=== PATIENT | male | born 1995 | race Caucasian/White ===

== ENCOUNTER 2021-02-18 14:49 | Emergency (ER) | payer BC, SELFPAY ==
[2021-02-18 15:05] VITALS: BP 133/81; PULSE 87; RESP 16; TEMP 37.1; O2SAT 100
--- NOTE | 2021-02-18 15:05 | ED.WOUNDLAC ---
HPI - Wound/Laceration General Chief Complaint: Wound/Laceration Stated Complaint: laceration on left hand History of Present Illness HPI narrative: This is a 25 year old male that cut his left hand outer pad of his hand while [place] part of a trust . Patient does not when his last teanus was and he has stopped the bleeding the incident happened around 1400. Related Data Home Medications Medication Instructions Recorded Confirmed No Home Medications 02/18/21 02/18/21 Allergies Allergy/AdvReac Type Severity Reaction Status Date / Time No Known Allergies Allergy Verified 02/18/21 15:16 Review of Systems Review of Systems: Hand outer pad laceration All systems reviewed & are unremarkable except as noted in HPI and below PMFSH Comments At time as signature, I have reviewed and agree with nursing past medical, social, surgical and family history. Please see nursing chart for further information. There is no relevant family history pertinent to the presenting complaint. Exam Narrative: GENERAL:Well-appearing, well-nourished, and in no acute distress. HEAD:Normocephalic, atraumatic. EYES: PERRLA and EOMI. ENT: Nares clear, no rhinorrhea or epistaxis. Mucous membranes moist. CHEST: Clear to auscultation. No respiratory distress. HEART: Regular rate and rhythm. ABDOMEN: Soft, nontender, nondistended, normal active bowel sounds. EXTREMITIES: Normal range of motion. No edema. left had laceration that was linear SKIN: Warm, dry, no rash. NEURO: No focal deficits. Alert and oriented x3. Course Vital Signs Vital signs: Vital Signs Temperature 98.7 F 02/18/21 15:05 Pulse Rate 87 02/18/21 15:05 Respiratory Rate 16 02/18/21 15:05 Blood Pressure 133/81 02/18/21 15:05 Pulse Oximetry 100 02/18/21 15:05 Temperature 98.7 F 02/18/21 15:05 Pulse Rate 61 02/18/21 16:28 Respiratory Rate 16 02/18/21 15:05 Blood Pressure 137/78 02/18/21 16:28 Pulse Oximetry 100 02/18/21 16:28 Procedures Laceration Laceration 1: Date: 02/18/21 Time: 15:50 Site: hand Side (If applicable): left Size (cm): 3 Description: linear Depth: simple, single layer Local Anesthetic: lidocaine 1% Amount of anesthesia used (mL): 1.5 Pre-repair: wound explored and irrigated ====== Skin Level ====== Skin layer closed with: nylon Size (cm): 5-0 Number of sutures: 5 Technique: simple, interrupted ====== Subcutaneous Layer ====== ====== Muscle Layer ====== ====== Tendon Layer ====== Dressing: Location: Left hand outer pad Pre-Procedure Diagnosis: Laceration Post-Procedure Diagnosis: Repaired Laceration Informed consent was obtained before procedure started. PROCEDURE: The appropriate timeout was taken. The area was prepped and draped in the usual sterile fashion. Local anesthesia was achieved using 1.5cc of Lidocaine 1% /without epinephrine. The wound was copiously irrigated. 5-0 Nylon Simple sutures were placed. Estimated blood loss was less than 1 mL. A dressing was applied to the area and anticipatory guidance, as well as standard post-procedure care, was explained. Return precautions are given. The patient tolerated the procedure well without complications. Follow-up visit set for suture removal and evaluation of the laceration. MDM - Wound/Laceration Differential Diagnosis Differential diagnosis: Likely laceration Discharge Plan Discharge Clinical Impression: Laceration Laceration of hand, left Qualifiers: Encounter type: initial encounter Foreign body presence: without foreign body Qualified Code(s): S61.412A - Laceration without foreign body of left hand, initial encounter Patient Disposition: Home, Self-Care Condition: Stable Instructions: Antibiotic Form, Laceration (ED) Additional Instructions: Do not get your wound wet until your healthcare provider says it is
[2021-02-18] MEDS: TETANUS,DIPHTHERIA,AC PERTUSSIS ADULT (0.5 ML) BOOSTRIX IM (15:09)
--- NOTE | 2021-02-18 16:05 | PC.NURSE ---
PT FELT IF HE WAS GOING TO PASS OUT WHILE HE WAS GETTING SUTURES. I LAYED HIS HEAD DOWN FLAT AND PUT COOL WASH CLOTH ON HIS FOREHEAD.
[2021-02-18 16:06] VITALS: BP 113/54; PULSE 75; O2SAT 100
[2021-02-18 16:28] VITALS: BP 137/78; PULSE 61; O2SAT 100
== END 2021-02-18 16:30 | disposition home or self-care (01) ==
PROVIDERS: Emergency Provider Nurse Practitioner Family
DX: S61.412A Laceration without foreign body of left hand, initial encounter (principal); Z23 Encounter for immunization; W45.8XXA Other foreign body or object entering through skin, initial encounter
CPT/HCPCS: 12002; 90471; 90715; 99202; G0463

== ENCOUNTER 2021-03-01 14:46 | Emergency (ER) | payer BC, SELFPAY ==
--- NOTE | 2021-03-01 14:49 | ED.WOUNDLAC ---
HPI - Wound/Laceration General Chief Complaint: Wound/Laceration Stated Complaint: remove stitches Time Seen by Provider: 03/01/21 14:50 Source: patient, RN notes reviewed and old records reviewed Mode of arrival: ambulatory Limitations: no limitations History of Present Illness HPI narrative: 25-year-old male presents to the [facility] for suture removal, placed on 18 February. Related Data Home Medications Medication Instructions Recorded Confirmed No Home Medications 02/18/21 02/18/21 Allergies Allergy/AdvReac Type Severity Reaction Status Date / Time No Known Allergies Allergy Verified 02/18/21 15:16 Review of Systems Review of Systems: All systems reviewed & are unremarkable except as noted in HPI and below Constitutional: Constitutional: Reports no additional constitutional complaints Eyes: Eyes: Reports no additional eye complaints ENT: Reports system reviewed and no additional complaints, except as documented Cardiovascular: Cardiovascular: Reports no additional cardiovascular complaints Respiratory: Respiratory: Reports no additional respiratory complaints Musculoskeletal: Musculoskeletal: Reports no additional musculoskeletal complaints Integumentary/Breasts: Skin/Breast: Reports as per HPI Neurologic: Reports system reviewed and no additional complaints, except as documented Psychiatric: Psychiatric: Reports no additional psychiatric complaints Allergic/Immunologic: Allergic/Immunologic: Reports no additional allergic/immunologic complaints PMFSH Past Medical History Medical History (Updated 03/01/21 @ 19:55 by Hilary Mukherjee) No significant medical problems Surgical History Surgical History (Updated 03/01/21 @ 19:55 by Hilary Mukherjee) No significant past surgical history Social History Social History (Updated 03/01/21 @ 19:55 by Hilary Mukherjee) Living arrangements: with family Occupation/Education: occupation Gender identity (if verbalized by the patient): Male Comments At the time of my signature, I reviewed and agree with the nursing past medical, surgical, social, and family history. There is no relevant family history pertinent to the patient complaint. Exam Const: General: healthy appearing, no acute distress and alert Nutritional Appearance: well nourished Orientation/consciousness: patient oriented x3 Limitations: no limitations HENMT: Head: normal to inspection Eyes: Pupils: Equal, round and reactive pupils present Neck: Neck: normal visual inspection, no lymphadenopathy and no meningeal signs Chest: Chest palpation & inspection: normal inspection of the chest Resp: Effort & Inspection: normal respiratory effort Cardio: Rate: regular rate Rhythm: regular rhythm Skin: Other: Well approximated with 5 stitches left palmar aspect hand. Neuro: General: patient oriented x3, moves all extremities, no meningeal signs and no focal motor deficits Speech: normal speech Gait exam (Neuro): Normal gait present Extrem: General: normal to inspection Psych: Appearance: grossly normal and well kempt Mental Status: mental status grossly normal Affect: normal affect Attitude: cooperative Thought content: Yes Normal thought content present Course Course Emergency Course: Discharge instructions reviewed with patient, as well as provided in writing per nursing staff. The instructions also include specific and strict return/GO TO THE ER as well as f/u information. All questions have been answered, and the patient deny any further questions with discharge and discharge plan. Vital Signs Vital signs: Vital Signs Temperature 98.3 F 03/01/21 14:55 Pulse Rate 90 03/01/21 14:55 Respiratory Rate 16 03/01/21 14:55 Blood Pressure 139/78 03/01/21 14:55 Pulse Oximetry 100 03/01/21 14:55 Temperature 98.3 F 03/01/21 14:55 Pulse Rate 90 03/01/21 14:55 Respiratory Rate 16 03/01/21 14:55 Blood Pressure 139/78 03/01/21 14:55 Pulse Oxi
[2021-03-01 14:55] VITALS: BP 139/78; PULSE 90; RESP 16; TEMP 36.8; O2SAT 100
== END 2021-03-01 15:07 | disposition home or self-care (01) ==
PROVIDERS: Emergency Provider Nurse Practitioner
DX: S61.412D Laceration without foreign body of left hand, subsequent encounter (principal); X58.XXXD Exposure to other specified factors, subsequent encounter
CPT/HCPCS: 99211; G0463

== ENCOUNTER 2022-02-10 10:33 | Emergency (ER) | payer BC, OTHER, SELFPAY ==
[2022-02-10 10:41] VITALS: BP 155/93; PULSE 69; RESP 16; TEMP 37; O2SAT 100
--- NOTE | 2022-02-10 10:41 | ED.URI ---
HPI - URI/Sore Throat General Chief Complaint: Skin/Abscess/Foreign Body Stated Complaint: lump on left side of neck Time Seen by Provider: 02/10/22 10:41 Source: patient and RN notes reviewed History of Present Illness HPI Narrative: Patient is a 26-year-old male who presents the urgent care with complaints of a tender lump on the left side of his neck. Patient states its been there for approximately 1 month and seems to have just gotten more tender over the last couple days with some slight redness. Patient denies any upper respiratory complaints. Denies any fevers. Patient has not done anything [id number] for for his symptoms. No acute distress noted. Patient aware of the plan of care. Some parts of this dictation were generated by voice recognition software and may contain typographical and/or grammatical inaccuracies. Related Data Allergies Allergy/AdvReac Type Severity Reaction Status Date / Time No Known Allergies Allergy Verified 02/10/22 10:48 Review of Systems Review of Systems: CONSTITUTIONAL: Denies fever, chills, or sweats. EYES: Denies visual changes, redness, or discharge. ENT: Denies rhinorrhea, congestion, sore throat, or otalgia. CARDIOVASCULAR: Denies chest pain, palpitations, or edema. RESPIRATORY: Denies cough or dyspnea. GASTROINTESTINAL: Denies abdominal pain, nausea, vomiting, or diarrhea. GENITOURINARY: Denies dysuria or hematuria. SKIN: Reports of a lump on the left side of the neck MUSCULOSKELETAL: Denies back pain, joint pain, or myalgia. NEUROLOGIC: Denies headache, numbness, or weakness. All other systems reviewed are negative, except as documented in HPI. [facility] Past Medical History Medical History (Updated 02/10/22 @ 10:54 by LEO Clay) No significant medical problems Surgical History Surgical History (Updated 03/01/21 @ 19:55 by Hilary Mukherjee APRN) No significant past surgical history Social History Social History (Updated 03/01/21 @ 19:55 by Hilary Mukherjee APRN) Gender identity (if verbalized by the patient): Male Comments At the time of my signature, I reviewed and agree with the nursing past medical, surgical, social, and family history. There is no relevant family history pertinent to the patient complaint. Exam Narrative: GENERAL: This is a well-nourished, well-developed patient, in no apparent distress. HEAD: normocephalic, atraumatic. EYES: PERRL. Sclera clear/white. Vision is grossly intact. EARS: External ears normal NOSE: External nose normal with no obvious nasal discharge, nares without redness, no rhinorrhea. THROAT: Mucous membranes moist NECK: Neck supple SKIN: 1 cm firm nonfluctuant nodule to the left neck/cervical region?consistent with sebaceous cyst with scant erythema and mild tenderness. Warm, intact with no suspicious lesions or rash, good texture and turgor. NEURO: awake, alert, and oriented to person, place and time. There were no obvious focal neurologic abnormalities. EXTREMITIES: No clubbing, cyanosis, or edema. Course Course Level of Care: Express Care Visit Vital Signs Vital signs: Vital Signs Temperature 98.6 F 02/10/22 10:41 Pulse Rate 69 02/10/22 10:41 Respiratory Rate 16 02/10/22 10:41 Blood Pressure 155/93 H 02/10/22 10:41 Pulse Oximetry 100 02/10/22 10:41 Oxygen Delivery Room Air 02/10/22 10:41 Temperature 98.6 F 02/10/22 10:41 Pulse Rate 69 02/10/22 10:41 Respiratory Rate 16 02/10/22 10:41 Blood Pressure 155/93 H 02/10/22 10:41 Pulse Oximetry 100 02/10/22 10:41 Oxygen Delivery Room Air 02/10/22 10:41 Reviewed-patient is informed that they may have pre-hypertension or hypertension based on a blood pressure reading in the department. I recommend the patient call the primary care provider listed on their discharge instructions or a physician of their choice this week to arrange follow-up for further evaluation of possible pre-hypertension or hypertension. JOEY - URI
== END 2022-02-10 10:56 | disposition home or self-care (01) ==
PROVIDERS: Emergency Provider Nurse Practitioner Family
DX: L72.3 Sebaceous cyst (principal)
CPT/HCPCS: 99213; G0463

== ENCOUNTER 2023-08-06 13:07 | Emergency (ER) | payer OTHER, SELFPAY ==
[2023-08-06 13:15] VITALS: BP 143/78; PULSE 95; RESP 16; TEMP 36; O2SAT 100
--- NOTE | 2023-08-06 13:37 | ED.MALEGU ---
HPI - Male Genitourinary General Chief complaint: Urogenital-Male Stated complaint: FEVER/UTI SYMPTOMS Time Seen by Provider: 08/06/23 13:32 Source: patient and RN notes reviewed Mode of arrival: ambulatory Limitations: no limitations History of Present Illness HPI Narrative: 27-year-old male presents with concern for fever, strong smelling urine. Reports his girlfriend recently had a urinary tract infection. He reports urine frequency, denies dysuria, penile discharge. Denies back pain, abdominal pain, nausea. MD Complaint: other (fever) Related Data Allergies Allergy/AdvReac Type Severity Reaction Status Date / Time No Known Allergies Allergy Verified 02/10/22 10:48 Review of Systems Review of Systems: CONSTITUTIONAL: Denies malaise, chills, sweats. Reports fever. CARDIOVASCULAR: Denies chest pain, palpitations, or edema. RESPIRATORY: Denies cough or dyspnea. GASTROINTESTINAL: Denies abdominal pain, nausea, vomiting, diarrhea GENITOURINARY: Reports dysuria, urgency, suprapubic pressure. Denies flank pain or hematuria. Reports urine frequency and strong smelling urine SKIN: Denies rash or itching. MUSCULOSKELETAL: Denies back pain or myalgia. All systems reviewed & are unremarkable except as noted in HPI and below PMFSH Past Medical History Medical History (Updated 08/06/23 @ 13:40 by Hilary Thomson NP) No significant medical problems Surgical History Surgical History (Updated 03/01/21 @ 19:55 by Hilary Mukherjee APRN) No significant past surgical history Social History Social History (Updated 03/01/21 @ 19:55 by Hilary Mukherjee APRN) Living arrangements: with family Occupation/Education: occupation Gender identity (if verbalized by the patient): Male Comments At time of signature, agree with nursing past medical, surgical, social and family history. There is no relevant family history pertinent to the presenting complaint Exam Narrative: GENERAL: Well-appearing, well-nourished, and in no acute distress. HEAD: Normocephalic. EYES: PERRLA, conjunctivae clear. NECK: Supple. No lymphadenopathy CHEST: Clear to auscultation. No respiratory distress. HEART: Regular rate and rhythm. ABDOMEN: Soft, nontender upon palpation, nondistended, normal active bowel sounds, no palpable or pulsatile masses, no guarding. No CVA tenderness SKIN: Warm, dry, no rash. NEURO: Alert and oriented x3. PSYCH: Normal mood and affect Course Course Emergency Course: Patient is aware of diagnosis, understands and agrees to treatment plan. Anticipatory guidance given. Patient agrees to follow-up as directed and is aware of reasons to seek care at the emergency department. Portions of this record may have been created with voice recognition software Level of Care: Express Care Visit Vital Signs Vital signs: Vital Signs Temperature 96.8 F L 08/06/23 13:15 Pulse Rate 95 08/06/23 13:15 Respiratory Rate 16 08/06/23 13:15 Blood Pressure 143/78 H 08/06/23 13:15 Pulse Oximetry 100 08/06/23 13:15 Temperature 96.8 F L 08/06/23 13:15 Pulse Rate 95 08/06/23 13:15 Respiratory Rate 16 08/06/23 13:15 Blood Pressure 143/78 H 08/06/23 13:15 Pulse Oximetry 100 08/06/23 13:15 Reviewed. MDM - Male Genitourinary Lab Data Labs: Urine Glucose Negative Reference Range: Negative Urine Bilirubin Negative Reference Range: Negative Urine Ketone Negative Reference Range: Negative Urine Specific [place] 1.020 Reference Range:1.001-1.035 Urine Blood Trace Reference Range: Negative * * Urine pH
== END 2023-08-06 13:43 | disposition home or self-care (01) ==
PROVIDERS: Emergency Provider Nurse Practitioner
DX: N39.0 Urinary tract infection, site not specified (principal); B96.20 Unspecified Escherichia coli [E. coli] as the cause of diseases classified elsewhere
CPT/HCPCS: 81003; 87077; 87086; 87088; 87186; 99213; G0463